=== PATIENT | female | born 1945 | race Caucasian/White ===

== ENCOUNTER 2016-12-25 17:58 | Emergency (ER) | payer OTHER, MEDICARE ==
--- NOTE | 2016-12-25 18:15 | PDOC ---
History of Present Illness - General History Source: Patient, EMS Exam Limitations: No Limitations - History of Present Illness Initial Comments: 12/25/16 19:00 The patient is a 71 year old female with past medical history of diabetes and hyperlipidemia who arrives to the ED via EMS with an episode of hypoglycemia. The patient states that at 4 am this morning she felt weak and could not get herself off the couch. About 12 hours later, after not eating or getting up to use the bathroom, the patient called her sister for help and EMS was called. Upon EMS arrival, the patients blood glucose level was 43 and they noted her to have right sided upper and lower extremity weakness as well as a right sided facial droop. After administering oral glucose, these deficits went away. In the ED, her finger stick was up to 90. The patient denies any complaints at this time. PCP: Catalino Lua [employer] Librarian: Dr. Minor Allergies: Levaquin, Penicillin Social History: Retired geriatric nurse for 40 years, denies history of smoking <Bing Wang - Last Filed: 12/25/16 20:42> <Gail Florence - Last Filed: 12/25/16 22:09> - General Chief Complaint: Blood Sugar Problem Stated Complaint: POSSIBLE CVA Time Seen by Provider: 12/25/16 18:05 NIH Stroke Scale - Last Known Well Date/Time & Onset Date Last Known Well: 12/24/16 Time Last Known Well: 04:00 - Initial Evaluation Level of consciousness: Alert Ask patient the month and their age: Answers one correctly Ask patient to open & close eyes; make fist and let go: Obeys both correctly Best gaze (horizontal eye movement): Normal Visual field testing: No visual field loss Facial paresis (Show teeth/raise eyebrows/close eyes tight): Normal symmetrical movement Motor Function: Left Arm: Normal Motor Function: Right Arm: Normal (extends arm 90 (or 45) degrees for 10 seconds without drift Motor Function: Left Leg: Normal (extends leg 30 degrees for 5 seconds without drift) Motor Function: Right Leg: Normal (extends leg 30 degrees for 5 seconds without drift) Limb Ataxia: No ataxia Sensory(Use pinprick test arms,legs,trunk,face/side to side): Normal Best language (Describe picture, name items, read sentences): No Aphasia Dysarthria (read several words): Normal articulation Extinction and Inattention: No abnormality - Total Score NIH Stroke Scale Score: 1 <Gail Florence - Last Filed: 12/25/16 22:09> Past History <Bing Wang - Last Filed: 12/25/16 20:42> - Past Medical History Anemia: No Asthma: Yes Cancer: Yes (UTERINE CA) Cardiac Disorders: Yes (HEART [id number] NEGATIVE) CVA: No COPD: No CHF: No Dementia: No Diabetes: Yes (IDDM) GI Disorders: Yes (DUODENAL ULCER; GERD;HEARTBURN) Disorders: No HTN: Yes Hypercholesterolemia: Yes Liver Disease: No Seizures: No Thyroid Disease: Yes (THYROID NODULE; HYPOTHYROIDISM) - Surgical History Abdominal Surgery: No Appendectomy: No Cardiac Surgery: No Cholecystectomy: No Lung Surgery: No Neurologic Surgery: No Orthopedic Surgery: No - Psycho/Social/Smoking Cessation Hx Smoking History: Never smoked Hx Alcohol Use: No Drug/Substance Use Hx: No Substance Use Type: None <Gail Florence - Last Filed: 12/25/16 22:09> - Past Medical History Allergies/Adverse Reactions: Allergies Allergy/AdvReac Type Severity Reaction Status Date / Time cephalexin [Cephalexin] Allergy Verified 10/01/13 08:23 levofloxacin Allergy Verified 10/01/13 08:23 Home Medications: Ambulatory Orders Albuterol Sulfate [Proair Hfa -] 2 inhaler PO Q4HWA PRN 10/01/13 Aspirin [ASA -] 1 tab PO DAILY 10/01/13 Atorvastatin Ca [Lipitor] 1 tab PO DAILY 10/01/13 Cholecalciferol (Vitamin D3) [Vitamin D3] 1 tab PO DAILY 10/01/13 Ezetimibe [Zetia -] 1 tab PO DAILY 10/01/13 Insulin Detemir [Levemir VIAL -] 50 units SQ DAILY 10/01/13 Levothyroxine [Synthroid -] 1 tab PO DAILY 10/01/13 Metformin HCl [Glucophage -] 2 tab PO DAILY 10/01/13 Multivit-Min/FA/Lycopene/Lut [Centrum Silver Tablet] 1 tab PO DAILY 10/01/13 Ramipril 1 cap PO DAILY 10/01/13 Review of Systems - Review of Systems Able to Perform ROS?: Yes Comments:: 12/25/16 19:00 CONSTITUTIONAL: Absent: fever, chills, diaphoresis, generalized weakness, malaise, loss of appetite HEENT: Absent: rhinorrhea, nasal congestion, throat pain, throat swelling, difficulty swallowing, mouth swelling, ear pain, eye pain, visual Changes CARDIOVASCULAR: Absent: chest pain, syncope, palpitations, irregular heart rate, lightheadedness , peripheral edema RESPIRATORY: Absent: cough, shortness of breath, dyspnea with exertion, orthopnea, wheezing, stridor, hemoptysis GASTROINTESTINAL: Absent: abdominal pain, abdominal distension, nausea, vomiting, diarrhea, constipation, melena, hematochezia GENITOURINARY: Absent: dysuria, frequency, urgency, hesitancy, hematuria, flank pain, genital pain MUSCULOSKELETAL: Absent: myalgia, arthralgia, joint swelling SKIN: Absent: rash, itching, pallor HEMATOLOGIC/IMMUNOLOGIC: Absent: easy bleeding, easy bruising, lymphadenopathy, frequent infections ENDOCRINE: Absent: unexplained weight gain, unexplained weight loss, heat intolerance, cold intolerance NEUROLOGIC: Present: transient right sided upper and lower extremity weakness, right sided facial droop Absent: headache, dizziness, unsteady gait, seizure, mental status changes, bladder or bowel incontinence PSYCHIATRIC: Absent: anxiety, depression, suicidal or homicidal ideation, hallucinations. All Other Systems: Reviewed and Negative <Bing Wang - Last Filed: 12/25/16 20:42> *Physical Exam - Vital Signs Last Vital Signs Temp Pulse Resp BP Pulse Ox 97.7 F 90 18 150/58 100 12/25/16 17:58 12/25/16 17:58 12/25/16 17:58 12/25/16 17:58 12/25/16 17:58 - Physical Exam Comments: 12/25/16 19:06 GENERAL: Well developed, well nourished. Awake and alert. No acute distress. HEENT: Normocephalic, atraumatic. PERRLA, EOMI. No conjunctival pallor. Sclera are non- icteric. Moist mucous membranes. Oropharynx is clear. NECK: Supple. Full ROM. No JVD. Carotid pulses 2+ and symmetric, without bruits. No thyromegaly. No lymphadenopathy. CARDIOVASCULAR: Regular rate and rhythm. No murmurs, rubs, or gallops. Distal pulses are 2+ and symmetric. PULMONARY: No evidence of respiratory distress. Lungs clear to auscultation bilaterally. No wheezing, rales or rhonchi. ABDOMINAL: Soft. Non-tender. Non-distended. No rebound or guarding. No organomegaly. Normoactive bowel sounds. MUSCULOSKELETAL Normal range of motion at all joints. No bony deformities or tenderness. No CVA tenderness. EXTREMITIES: Trace pitting edema bilaterally. No cyanosis. No clubbing. No edema. No calf tenderness. SKIN: Warm and dry. Normal capillary refill. No rashes. No jaundice. NEUROLOGICAL: Alert, awake, appropriate. Cranial nerves 2-12 intact. No deficits to light touch and temperature in face, upper extremities and lower extremities. No motor deficits in the in face, upper extremities and lower extremities. Normoreflexic in the upper and lower extremities. Normal speech. Toes are down-going bilaterally. Gait is normal without ataxia. PSYCHIATRIC: Cooperative. Good eye contact. Appropriate mood and affect <[facility] - Last Filed: 12/25/16 20:42> ED Treatment Course - LABORATORY CBC & Chemistry Diagram: 12/25/16 19:56 - ADDITIONAL ORDERS Additional order review: Laboratory Results 12/25/16 18:09 POC Glucometer [id number] 12/25/16 18:09 POC Glucometer [id number] - RADIOLOGY Radiograph Interpretation: 12/25/16 20:[address] as reviewed by Dr. Gongora who reports no evidence of acute intracranial pathology. 12/25/16 20:42 Chest X-ray as reviewed by Dr. Gongora reports no acute disease <[facility] - Last Filed: 12/25/16 20:42> - LABORATORY CBC & Chemistry Diagram: 12/25/16 19:56 12/25/16 20:03 <Gail Florence - Last Filed: 12/25/16 22:09> Medical Decision Making - Medical Decision Making 12/25/16 22:04 71-year-old female was brought in by ambulance because she was found to be hypoglycemic. The patient did not eat today. She said that she's been watching her elderly mother and not eating regularly and sleeping odd hours. Today she felt very weak and felt that she had extremity weakness and called her sister who then called 911 NIH stroke scale is essentially normal . 0 After she received glucose all her symptoms resolved She does not have a fever, she is not hypotensive, she is not hypoxic Radiology infiltrates, effusions or pathology Urinalysis was negative CAT scan of the head did not show any acute intracranial pathology CBC had a mild leukocytosis with WBC of 11,000, no anemia, normal platelets and no bandemia Chemistry showed a glucose of 132, kidney function was within normal limits. Electrolytes and LFTs were unremarkable <Gail Florence - Last Filed: 12/25/16 22:09> *DC/Admit/Observation/Transfer - Attestations Scribe Attestion: 12/25/16 19:06 Documentation prepared by Bing Wang, acting as medical billing representative for Gail Florence MD. <Bing Wang - Last Filed: 12/25/16 20:42> <Gail Florence - Last Filed: 12/25/16 22:09> Diagnosis at time of Disposition: Hypoglycemia - Discharge Dispostion Disposition: HOME Condition at time of disposition: Stable - Patient Instructions Printed Discharge Instructions: DI for Hypoglycemia Additional Instructions: PLEASE REMEMBER TO EAT YOUR MEALS WHEN TAKING YOUR INSULIN FPLLOW UP WITH YOUR PRIMARY PHYSICIAN IF YOU DEVELOP ANY FEVER,CHEST PAIN,ABDOMINAL PAIN ,RESPIRATORY DIFFICULTIES- RETURN TO THE EMERGENCY DEPARTMENT
[2016-12-25 18:20] VITALS: BP 150/58; PULSE 90; TEMP 97.7; BMI 33.0
[2016-12-25 19:31] LABS: URINE APPEARANCE CLEAR; URINE BILIRUBIN NEGATIVE (NEGATIVE); URINE BLOOD NEGATIVE (NEGATIVE); URINE COLOR LTYELLOW; URINE GLUCOSE (UA) NEGATIVE (NEGATIVE); URINE KETONE NEGATIVE (NEGATIVE); URINE LEUK ESTERASE NEGATIVE (NEGATIVE); URINE NITRITE NEGATIVE (NEGATIVE); URINE PROTEIN NEGATIVE (NEGATIVE); URINE UROBILINOGEN NEGATIVE mg/dL (0.2-1.0)
[2016-12-25 20:14] LABS: EOSINOPHIL 0.4 % (0-4.5); MCH 28.9 pg (25.7-33.7); MCHC 33.2 g/dl (32.0-36.0); MEAN PLT VOLUME 10.1 fl (7.5-11.1); NEUTROPHILS 77.7 % (42.8-82.8); PLATELET COUNT 405 K/MM3 (134-434); RDW 14.2 % (11.6-15.6); WHITE BLOOD COUNT 11.1 K/mm3 (4.0-10.0)
[2016-12-25 20:26] LABS: INR 0.99 (0.82-1.09); PROTHROMBIN TIME (PATIENT) 10.9 SEC (9.98-11.88)
[2016-12-25 21:08] LABS: ALBUMIN 3.5 g/dl (3.4-5.0); ANION GAP 8 (8-16); BILIRUBIN,TOTAL 0.7 mg/dL (0.2-1.0); CALCIUM 9.3 mg/dL (8.5-10.1); CO2 27 mmol/L (21-32); CREATININE 0.7 mg/dL (0.55-1.02); GLUCOSE,RANDOM 132 mg/dL (74-106); SGOT/AST 12 U/L (15-37); SGPT/ALT 22 U/L (12-78); TOT PROT 7.8 g/dl (6.4-8.2)
[2016-12-25 21:11] LABS: ALK PHOS 116 U/L (45-117); CPK 53 IU/L (26-192); TROPONIN I < 0.02 ng/ml (0.00-0.05)
[2016-12-25 21:35] LABS: PLATELET ESTIMATE ADEQUATE (NORMAL)
--- NOTE | 2016-12-26 13:56 | EKG ---
Test Reason : Blood Pressure : / mmHG Vent. Rate : 090 BPM Atrial Rate : 090 BPM P-R Int : 156 ms QRS Dur : 080 ms QT Int : 362 ms P-R-T Axes : 053 000 039 degrees QTc Int : 442 ms POOR DATA QUALITY, INTERPRETATION MAY BE ADVERSELY AFFECTED NORMAL SINUS RHYTHM LOW VOLTAGE QRS BORDERLINE ECG NO PREVIOUS ECGS AVAILABLE REPEAT EKG IF CLINICALLY INDICATED Confirmed by KARL PRINCE MD ([id number]) on 12/26/2016 1:56:15 PM Referred By: Confirmed By:KARL PRINCE MD
== END 2016-12-25 22:25 | disposition home or self-care (01) ==
LOC: JER 17:58
DX: E11.65 Type 2 diabetes mellitus with hyperglycemia (principal); Z79.84 Long term (current) use of oral hypoglycemic drugs; E03.9 Hypothyroidism, unspecified; E78.5 Hyperlipidemia, unspecified; Z85.42 Personal history of malignant neoplasm of other parts of uterus; R01.1 Cardiac murmur, unspecified; J45.909 Unspecified asthma, uncomplicated; K21.9 Gastro-esophageal reflux disease without esophagitis; Z88.1 Allergy status to other antibiotic agents; Z79.82 Long term (current) use of aspirin
CPT/HCPCS: 36415; 70450-TC; 71010-TC; 80053; 81003; 84484; 85025; 85610; 87086; 93005; 93010; 99284-25

== ENCOUNTER 2019-01-17 14:03 | Emergency (ER) | payer MEDICARE, OTHER ==
--- NOTE | 2019-01-17 14:34 | PDOC ---
History of Present Illness - General Chief Complaint: Blood Sugar Problem Stated Complaint: LOW BLOOD SUGAR Time Seen by Provider: 01/17/19 14:33 History Source: Patient Exam Limitations: No Limitations - History of Present Illness Initial Comments: Aleisha Dietrich is a 73 yo F w a pmh of COPD, MA, IDDM, HTN, HLD, and asthma, GERD , PUD, hypothyroidism, and sciatica who presents to the [facility] because she was hypoglycemic and unconscious. The patient states that she couldn't sleep well last night and was watching TV at 2:30 am when she by accidentally took a 2nd dose of her Levemir medication. This morning the patient's mother noted that the patient was unresponsive on the couch and the mother called 911. EMS came and noted that the patient was unresponsive. Her fingerstick this morning was noted to be 35. They gave her a shot of D50 and put an IV in her running with D51/2NS. Upon arrival to the ED the patient was relatively asymptomatic with a blood glucose of 170 and she states the only thing that bothers her was she had a slight headache. The patient states that 2 years ago she had a similar episode where she became hypoglycemic and experienced stroke like symptoms which resolved immediately after glucose administration. PCP: Dr. Oliver (Formerly Dr. Bae) Catshovel Driver: Dr. Lira PSH: Uterine resection Allergies: Keflex, penicillin, levaquin Social Hx: Independent in ADL. Lives with mother who is 94 and patient takes care of herself without an aid. Past History - Past Medical History Allergies/Adverse Reactions: Allergies Allergy/AdvReac Type Severity Reaction Status Date / Time cephalexin [Cephalexin] Allergy Verified 01/17/19 14:20 levofloxacin Allergy Verified 01/17/19 14:20 Home Medications: Ambulatory Orders Albuterol Sulfate [Proair Hfa -] 2 inhaler PO Q4HWA PRN 10/01/13 Aspirin [ASA -] 1 tab PO DAILY 10/01/13 Atorvastatin Ca [Lipitor] 1 tab PO DAILY 10/01/13 Cholecalciferol (Vitamin D3) [Vitamin D3] 1 tab PO DAILY 10/01/13 Ezetimibe [Zetia -] 1 tab PO DAILY 10/01/13 Insulin Detemir [Levemir VIAL -] 50 units SQ DAILY 10/01/13 Levothyroxine [Synthroid -] 1 tab PO DAILY 10/01/13 Multivit-Min/FA/Lycopene/Lut [Centrum Silver Tablet] 1 tab PO DAILY 10/01/13 Ramipril 1 cap PO DAILY 10/01/13 metFORMIN HCL [Glucophage -] 2 tab PO DAILY 10/01/13 Anemia: No Asthma: Yes Cancer: Yes (UTERINE CA) Cardiac Disorders: Yes (HEART [id number] NEGATIVE) CVA: No COPD: No CHF: No Dementia: No Diabetes: Yes (IDDM) GI Disorders: Yes (DUODENAL ULCER; GERD;HEARTBURN) Disorders: No HTN: Yes Hypercholesterolemia: Yes Liver Disease: No Seizures: No Thyroid Disease: Yes (THYROID NODULE; HYPOTHYROIDISM) - Surgical History Abdominal Surgery: No Appendectomy: No Cardiac Surgery: No Cholecystectomy: No Lung Surgery: No Neurologic Surgery: No Orthopedic Surgery: No - Suicide/Smoking/Psychosocial Hx Smoking History: Never smoked Have you smoked in the past 12 months: No Information on smoking cessation initiated: No Hx Alcohol Use: No Drug/Substance Use Hx: No Substance Use Type: None Review of Systems - Review of Systems Able to Perform ROS?: Yes Comments:: CONSTITUTIONAL: Absent: fever, no chills, no fatigue EYES: Absent: visual changes ENT: Absent: ear pain, no sore throat CARDIOVASCULAR: Absent: chest pain, no palpitations RESPIRATORY: Absent: cough, no SOB GI: Absent: abdominal pain, no nausea, no vomiting, no constipation, no diarrhea GENITOURINARY: Absent: dysuria, no frequency, no hematuria MUSKULOSKELETAL: Absent: back pain, no arthralgia, no myalgia SKIN: Absent: rash NEURO: present: headache *Physical Exam - Vital Signs Last Vital Signs Temp Pulse Resp BP Pulse Ox 97.5 F L 63 18 108/56 L 96 01/17/19 14:10 01/17/19 14:10 01/17/19 14:10 01/17/19 14:10 01/17/19 14:10 - Physical Exam Comments: GENERAL: Well-appearing, well-nourished. No apparent distress. HEENT: Normocephalic, atraumatic. PERRL, EOM intact. CARDIOVASCULAR: Normal S1, S2. Regular rate and rhythm. PULMONARY: No evidence of respiratory distress. Lungs clear to auscultation bilaterally. No wheezing, rales or rhonchi. ABDOMEN: Soft, non-distended, non-tender. EXTREMITIES: Normal ROM in all four extremities. No gross deformities. SKIN: Warm, dry. No rash NEUROLOGICAL: No focal neurological deficits. ED Treatment Course - LABORATORY CBC & Chemistry Diagram: 01/17/19 15:42 01/17/19 15:42 Medical Decision Making - Medical Decision Making Aleisha Dietrich is a 73 yo F w a pmh of COPD, MA, IDDM, HTN, HLD, and asthma, GERD , PUD, hypothyroidism, and sciatica who presents to the [facility] because she was hypoglycemic and unconscious. The patient states that she couldn't sleep well last night and was watching TV at 2:30 am when she by accidentally took a 2nd dose of her Levemir medication. This morning the patient's mother noted that the patient was unresponsive on the couch and the mother called 911. EMS came and noted that the patient was unresponsive. Her fingerstick this morning was noted to be 35. They gave her a shot of D50 and put an IV in her running with D51/2NS. Upon arrival to the ED the patient was relatively asymptomatic with a blood glucose of 170 and she states the only thing that bothers her was she had a slight headache. The patient states that 2 years ago she had a similar episode where she became hypoglycemic and experienced stroke like symptoms which resolved immediately after glucose administration. Vital Signs Temp Pulse Resp BP Pulse Ox 98.1 F 98 H 17 132/69 100 01/17/19 16:32 01/17/19 16:32 01/17/19 16:32 01/17/19 16:32 01/17/19 16:32 MDM: Patient presented to the ER hypoglycemic after she by accidentally took twice as much insulin as she usually takes because she forgot that she took her first dose. The Insulin formulation she took 2 doses of is the long acting Levemir. Plan: Labs, urine, observation, re-assess. Labs unremarkable. Glucose WNL for 5 hours straight in the ED. Urine: unremarkable Re-assessment: Patient feels well and has been asymptomatic since ED arrival Disposition: Will send patient home with PCP follow up and strict return precautions. *DC/Admit/Observation/Transfer Diagnosis at time of Disposition: Hypoglycemia - Discharge Dispostion Disposition: HOME Condition at time of disposition: Improved Decision to Admit order: No - Referrals Referrals: ON STAFF,NOT [Primary Care Provider] - - Patient Instructions Printed Discharge Instructions: Hypoglycemia Additional Instructions: Please make sure to follow up with your primary care doctor in the next 3 to 5 days to make sure you are getting better and being taken care of. Make sure to eat complex carbs for the next 2 days. Come back to the ER if you feel weak, dizzy, start sweating or have any other new or worsening concerns. Thank you for coming to the [facility] ER. We hope you feel better soon! Print Language: KAZAKH - Post Discharge Activity
[2019-01-17 14:38] VITALS: BMI 34.0
[2019-01-17] MEDS ORDERED: DEXTROSE 5%-NORMAL SALINE 500 ML IV ONE (14:59)
[2019-01-17] MEDS ORDERED: ACETAMINOPHEN 1000 MG/100 ML VIAL (NON FORMULARY) IVPB ONE (15:07)
[2019-01-17] MEDS ORDERED: ACETAMINOPHEN INJECTION 100 ML IVPB ONE (15:22)
[2019-01-17] MEDS ORDERED: DEXTROSE 50%-WATER 25 GM/50 ML DISP.SYRIN ONE (15:29)
[2019-01-17] MEDS ORDERED: DEXTROSE 50%-WATER - 25 GM/50 ML VIAL IVPUSH ONE (15:44)
[2019-01-17 15:54] LABS: BASO % 0.9 % (0-2.0); EOS % 0.5 % (0-4.5); HEMATOCRIT 29.2 % (32.4-45.2); HEMOGLOBIN 9.8 GM/dL (10.7-15.3); LYMPH % 14.2 % (8-40); MCH 29.5 pg (25.7-33.7); MCHC 33.6 g/dl (32.0-36.0); MEAN CELL VOLUME 87.9 fl (80-96); MEAN PLT VOLUME 9.9 fl (7.5-11.1); MONO % 3.7 % (3.8-10.2); NEUT % 80.7 % (42.8-82.8); PLATELET COUNT 397 K/MM3 (134-434); RBC 3.32 M/mm3 (3.60-5.2); RDW 15.3 % (11.6-15.6)
[2019-01-17 16:21] LABS: ALBUMIN 3.1 g/dl (3.4-5.0); BILIRUBIN,TOTAL 0.3 mg/dL (0.2-1); BLOOD UREA NITROGEN 11.9 mg/dL (7-18); CALCIUM 9.3 mg/dL (8.5-10.1); CREATININE 0.7 mg/dL (0.55-1.3); POTASSIUM 4.5 mmol/L (3.5-5.1); TOT PROT 7.2 g/dl (6.4-8.2)
[2019-01-17 16:33] VITALS: TEMP 98.1
--- NOTE | 2019-01-17 16:50 | PDOC ---
Documentation entered by Ann Marie Gunter SCRIBE, acting as scribe for Joy Carvajal MD. Joy Carvajal MD: This documentation has been prepared by the yajairaibeJani Natalie, SCRIBE, under my direction and personally reviewed by me in its entirety. I confirm that the documentation accurately reflects all work, treatment, procedures, and medical decision making performed by me. Attending Attestation - Resident Resident Name: Nishant Najera - ED Attending Attestation I have performed the following: I have examined & evaluated the patient, The case was reviewed & discussed with the resident, I agree w/resident's findings & plan, Exceptions are as noted
[2019-01-17 19:30] VITALS: BP 122/78; PULSE 85
--- NOTE | 2019-01-18 11:32 | EKG ---
Test Reason : Blood Pressure : / mmHG Vent. Rate : 086 BPM Atrial Rate : 086 BPM P-R Int : 160 ms QRS Dur : 088 ms QT Int : 392 ms P-R-T Axes : 053 008 065 degrees QTc Int : 469 ms POOR DATA QUALITY, INTERPRETATION MAY BE ADVERSELY AFFECTED NORMAL SINUS RHYTHM NORMAL ECG WHEN COMPARED WITH ECG OF 25-DEC-2016 18:34, NO SIGNIFICANT CHANGE WAS FOUND Confirmed by CARA MÁRQUEZ, ERIBERTO ([id number]) on 01/18/2019 11:32:24 AM Referred By: Confirmed By:ERIBERTO MARROQUIN MD
== END 2019-01-17 19:00 | disposition home or self-care (01) ==
LOC: JER 14:03
PROC: 3E033NZ Introduction of Analgesics, Hypnotics, Sedatives into Peripheral Vein, Percutaneous Approach (ICD-10-PCS; principal; 2019-01-17)
PROC: 3E033GC Introduction of Other Therapeutic Substance into Peripheral Vein, Percutaneous Approach (ICD-10-PCS; 2019-01-17)
DX: E11.65 Type 2 diabetes mellitus with hyperglycemia (principal); J44.9 Chronic obstructive pulmonary disease, unspecified; I10 Essential (primary) hypertension; E78.5 Hyperlipidemia, unspecified; E03.9 Hypothyroidism, unspecified
CPT/HCPCS: 36415; 80053; 82962; 84484; 85025; 93005; 93010; 96361; 96374; 96375; 99283-25; J0131

== ENCOUNTER 2022-12-01 08:04 | Day surgery (SDC) | payer OTHER ==
[2022-12-01] MEDS ORDERED: FUROSEMIDE 40 MG TABLET (FP) PO ONE (11:00)
[2022-12-01] MEDS ORDERED: diphenhydrAMINE HCL 25 MG CAPSULE (FP) PO ONE ×2 (16:07→18:33)
[2022-12-01] MEDS ORDERED: DEXAMETHASONE 4 MG TABLET (FP) PO ONE ×2 (16:15→18:45)
[2022-12-01 16:54] LABS: POTASSIUM 4.3 mmol/L (3.5-5.1)
[2022-12-01 16:56] LABS: CALCIUM 9.3 mg/dL (8.5-10.1)
[2022-12-01 16:59] LABS: BILIRUBIN,DIRECT 0.2 mg/dL (0.0-0.2); CREATININE 0.7 mg/dL (0.55-1.3)
[2022-12-01 17:04] LABS: EPI CELLS 23 /uL (0-25.1); HYALINE CASTS 1 /uL (0-3.1); URINE APPEARANCE CLEAR; URINE BACTERIA 26 /uL (0-1359); URINE BILIRUBIN NEGATIVE (NEGATIVE); URINE COLOR YELLOW; URINE GLUCOSE (UA) NEGATIVE (NEGATIVE); URINE KETONE NEGATIVE (NEGATIVE); URINE LEUK ESTERASE 1+ (NEGATIVE); URINE NITRITE NEGATIVE (NEGATIVE); URINE PROTEIN 3+ (NEGATIVE); URINE RBC 5 /uL (0-23.9); URINE WBC 224 /uL (0-25.8)
[2022-12-01] MEDS ORDERED: INSULIN (NOVOLOG) ASPART 100 UNITS/ML 10ML VIAL SQ ONE (18:45)
[2022-12-01 21:08] VITALS: RESP 18
[2022-12-01 22:06] VITALS: BP 188/68; PULSE 82; TEMP 98.5
[2022-12-01 22:40] LABS: BASO % 2.4 % (0-2.0); EOS % 0.3 % (0-4.5); HEMATOCRIT 32.3 % (32.4-45.2); HEMOGLOBIN 10.5 GM/dL (10.7-15.3); LYMPH % 6.1 % (8-40); MCH 29.2 pg (25.7-33.7); MCHC 32.5 g/dl (32.0-36.0); MEAN PLT VOLUME 10.7 fl (7.5-11.1); MONO % 1.3 % (3.8-10.2); NEUT % 89.9 % (42.8-82.8); PLATELET COUNT 548 10^3/uL (134-434); RBC 3.59 M/mm3 (3.60-5.2); RDW 21.4 % (11.6-15.6); WHITE BLOOD COUNT 8.6 K/mm3 (4.0-10.0)
[2022-12-01 22:58] LABS: ANISOCYTOSIS 2+; MACROCYTOSIS 0; OVALOCYTE 1+
== END 2022-12-01 23:00 | disposition home or self-care (01) ==
LOC: JONCBLOOD 08:04 → J7W 08:09 → JONCBLOOD 19:00
PROVIDERS: ATTEND Internal Medicine Hematology & Oncology
PROC: 30233N1 Transfusion of Nonautologous Red Blood Cells into Peripheral Vein, Percutaneous Approach (ICD-10-PCS; principal; 2022-12-01)
PROC: 3E013VG Introduction of Insulin into Subcutaneous Tissue, Percutaneous Approach (ICD-10-PCS; 2022-12-01)
DX: E61.1 Iron deficiency (principal); I10 Essential (primary) hypertension; C50.811 Malignant neoplasm of overlapping sites of right female breast; Z17.0 Estrogen receptor positive status [ER+]; E78.00 Pure hypercholesterolemia, unspecified; J44.9 Chronic obstructive pulmonary disease, unspecified; Z91.148 Patient's other noncompliance with medication regimen for other reason; Z88.0 Allergy status to penicillin
CPT/HCPCS: 36415; 36430; 80048; 81003; 82247; 82248; 83010; 85025; 86078; 86850; 86900; 86901; 86922; 96372; P9038; P9058

== ENCOUNTER 2023-03-16 08:06 | Day surgery (SDC) | payer OTHER ==
[2023-03-16] MEDS ORDERED: FUROSEMIDE 40 MG TABLET (FP) PO ONE ×2 (10:00→12:00)
[2023-03-16] MEDS ORDERED: FUROSEMIDE 20 MG TABLET (FP) PO ONE (12:00)
[2023-03-16 15:23] VITALS: BP 156/52; PULSE 88; RESP 18; TEMP 98.2
[2023-03-16 18:25] LABS: BASO % 3.3 % (0-2.0); EOS % 2.3 % (0-4.5); HEMOGLOBIN 10.2 GM/dL (10.7-15.3); LYMPH % 27.5 % (8-40); MCH 31.3 pg (25.7-33.7); MEAN CELL VOLUME 92.1 fl (80-96); MEAN PLT VOLUME 11.2 fl (7.5-11.1); NEUT % 61.9 % (42.8-82.8); PLATELET COUNT 429 10^3/uL (134-434); RBC 3.26 M/mm3 (3.60-5.2); RDW 20.7 % (11.6-15.6); WHITE BLOOD COUNT 4.8 K/mm3 (4.0-10.0)
== END 2023-03-16 18:15 | disposition home or self-care (01) ==
LOC: J7W 08:06 → JONCBLOOD 08:06
PROVIDERS: ATTEND Internal Medicine Hematology & Oncology
PROC: 30233N1 Transfusion of Nonautologous Red Blood Cells into Peripheral Vein, Percutaneous Approach (ICD-10-PCS; principal; 2023-03-16)
DX: D64.9 Anemia, unspecified (principal)
CPT/HCPCS: 36415; 36430; 85025; 86850; 86900; 86901; 86922; P9058

== ENCOUNTER 2023-05-24 00:43 | Emergency (ER) | payer OTHER ==
[2023-05-24 00:58] VITALS: BP 166/58; PULSE 101; RESP 20; TEMP 98.8; BMI 25.4
== END 2023-05-24 01:12 | disposition left against medical advice (07) ==
LOC: JER 00:43
DX: R22.43 Localized swelling, mass and lump, lower limb, bilateral (principal)
CPT/HCPCS: 99283-25

== ENCOUNTER 2023-09-08 14:10 | Inpatient (IN) | payer OTHER ==
[2023-09-08 14:34] VITALS: BMI 28.3
[2023-09-08] MEDS ORDERED: MIDAZOLAM HCL 2 MG/2 ML SINGLE DOSE VIAL ONE (15:13)
[2023-09-08 15:23] LABS: VENOUS O2 SATURATION 26.3 % (70-80); VENOUS PCO2 40.8 mmHg (38-52); VENOUS PH 7.402 (7.310-7.410)
[2023-09-08 15:24] LABS: INR 1.12 (0.83-1.09)
[2023-09-08 15:25] LABS: HEMATOCRIT 14.8 % (32.4-45.2); MCH 32.8 pg (25.7-33.7); MCHC 31.4 g/dl (32.0-36.0); MEAN CELL VOLUME 104.6 fl (80-96); MEAN PLT VOLUME 9.5 fl (7.5-11.1); PLATELET COUNT 714 10^3/uL (134-434); RBC 1.42 M/mm3 (3.60-5.2); RDW 25.3 % (11.6-15.6); WHITE BLOOD COUNT 10.5 K/mm3 (4.0-10.0)
[2023-09-08] MEDS: MIDAZOLAM HCL 2 MG/2 ML SINGLE DOSE VIAL IVPUSH ONE (15:29)
[2023-09-08 15:31] LABS: HEMOGLOBIN 4.7 GM/dL (10.7-15.3)
[2023-09-08 15:38] LABS: POTASSIUM 4.6 mmol/L (3.5-5.1)
[2023-09-08 15:40] LABS: CALCIUM 8.7 mg/dL (8.5-10.1)
[2023-09-08 15:41] LABS: ALBUMIN 2.8 g/dl (3.4-5.0); BLOOD UREA NITROGEN 24.1 mg/dL (7-18)
[2023-09-08 15:43] LABS: ANISOCYTOSIS 2+; MACROCYTOSIS 0
[2023-09-08 15:44] LABS: CREATININE 0.7 mg/dL (0.55-1.3)
[2023-09-08 15:45] LABS: TOT PROT 6.9 g/dl (6.4-8.2)
[2023-09-08 15:46] LABS: BILIRUBIN,TOTAL 0.8 mg/dL (0.2-1)
[2023-09-08 16:16] LABS: INR 1.11 (0.83-1.09); PROTHROMBIN TIME (PATIENT) 12.9 SEC (9.7-13.0)
[2023-09-08 16:19] LABS: ACTIVATED PTT 28.6 SECONDS (25.2-36.5)
[2023-09-08] MEDS ORDERED: ACETAMINOPHEN INJECTION 100 ML IVPB ONE (20:41)
[2023-09-08] MEDS: ACETAMINOPHEN 1000 MG/100 ML BAG IVPB ONE (20:45)
[2023-09-09 02:22] LABS: BASO % 3.2 % (0-2.0); EOS % 1.1 % (0-4.5); HEMOGLOBIN 9.2 GM/dL (10.7-15.3); LYMPH % 13.3 % (8-40); MCH 32.5 pg (25.7-33.7); MEAN CELL VOLUME 95.4 fl (80-96); MONO % 6.1 % (3.8-10.2); NEUT % 76.3 % (42.8-82.8); PLATELET COUNT 560 10^3/uL (134-434); RBC 2.83 M/mm3 (3.60-5.2); RDW 17.2 % (11.6-15.6); WHITE BLOOD COUNT 7.6 K/mm3 (4.0-10.0)
[2023-09-09] MEDS: DEXTROSE 5%-LACTATED RINGERS 1,000 ML IV SCH (04:13)
[2023-09-09] MEDS: FUROSEMIDE 40 MG/4 ML INJECTABLE VIAL IVPUSH ONE (06:14)
[2023-09-09] MEDS: INSULIN ASPART SLIDING SCALE (NOVOLOG) 1 VIAL SQ SCH (06:21)
[2023-09-09] MEDS: LEVOTHYROXINE 100 MCG, LEVOTHYROXINE 75 MCG PO SCH (06:24)
[2023-09-09 08:16] LABS: RETICULOCYTES 1.86 % (0.5-1.5)
[2023-09-09] MEDS ORDERED: PATIENT'S OWN MEDICATION (NON-FORMULARY) (Levothyroxine Sodium [Levothyroxine Sodium] 175 PO SCH (10:00)
[2023-09-09] MEDS: LOSARTAN POTASSIUM 50 MG TABLET PO SCH (12:27)
[2023-09-09] MEDS: PANTOPRAZOLE SODIUM 40 MG VIAL IVPUSH SCH (12:29)
[2023-09-09] MEDS: PREGABALIN 25 MG CAPSULE PO SCH (12:29)
[2023-09-09] MEDS: DEXTROSE 5%-0.45% SALINE 1,000 ML IV SCH (17:11)
[2023-09-09] MEDS ORDERED: ARIPiprazole 2 MG TABLET PO SCH (22:00)
[2023-09-09] MEDS ORDERED: MIRTAZAPINE 15 MG TABLET (FP) PO SCH (22:00)
[2023-09-09] MEDS: ARIPiprazole 2 MG TABLET PO SCH (22:18)
[2023-09-09] MEDS: QUEtiapine FUMARATE 25 MG TABLET PO SCH (22:18)
[2023-09-10] MEDS: LEVOTHYROXINE NA 150 MCG TABLET PO SCH (06:13)
[2023-09-10 06:35] LABS: BASO % 2.9 % (0-2.0); HEMATOCRIT 26.1 % (32.4-45.2); LYMPH % 10.2 % (8-40); MCH 32.9 pg (25.7-33.7); MCHC 34.4 g/dl (32.0-36.0); MEAN CELL VOLUME 95.5 fl (80-96); MEAN PLT VOLUME 9.1 fl (7.5-11.1); MONO % 7.4 % (3.8-10.2); NEUT % 78.5 % (42.8-82.8); PLATELET COUNT 554 10^3/uL (134-434); RBC 2.74 M/mm3 (3.60-5.2); RDW 19.3 % (11.6-15.6); WHITE BLOOD COUNT 8.8 K/mm3 (4.0-10.0)
[2023-09-10 06:50] LABS: POTASSIUM 3.6 mmol/L (3.5-5.1)
[2023-09-10 06:51] LABS: BLOOD UREA NITROGEN 12.8 mg/dL (7-18); CALCIUM 8.7 mg/dL (8.5-10.1)
[2023-09-10 06:54] LABS: CREATININE 0.6 mg/dL (0.55-1.3)
[2023-09-10] MEDS: POLYETHYLENE GLYCOL (HEALTHYLAX) 3350 17 GM PACKET PO SCH (21:16)
[2023-09-10] MEDS: SENNOSIDES 8.8 MG/5 ML SYRUP PO SCH (21:16)
[2023-09-11 07:35] LABS: HEMOGLOBIN 8.8 GM/dL (10.7-15.3); MCH 32.9 pg (25.7-33.7); MCHC 33.8 g/dl (32.0-36.0); MEAN CELL VOLUME 97.3 fl (80-96); MEAN PLT VOLUME 9.3 fl (7.5-11.1); PLATELET COUNT 518 10^3/uL (134-434); RBC 2.67 M/mm3 (3.60-5.2); RDW 18.8 % (11.6-15.6); WHITE BLOOD COUNT 8.2 K/mm3 (4.0-10.0)
[2023-09-11 07:48] LABS: POTASSIUM 3.6 mmol/L (3.5-5.1)
[2023-09-11 07:50] LABS: CALCIUM 8.4 mg/dL (8.5-10.1)
[2023-09-11 07:51] LABS: BLOOD UREA NITROGEN 10.7 mg/dL (7-18)
[2023-09-11 07:54] LABS: CREATININE 0.6 mg/dL (0.55-1.3)
[2023-09-11 07:55] LABS: TOT PROT 6.2 g/dl (6.4-8.2)
[2023-09-11 07:56] LABS: BILIRUBIN,TOTAL 1.5 mg/dL (0.2-1)
[2023-09-11 08:04] LABS: ALBUMIN 2.2 g/dl (3.4-5.0)
[2023-09-11 09:07] LABS: ANISOCYTOSIS 1+; MACROCYTOSIS 1+
[2023-09-11] MEDS: ANASTROZOLE 1 MG TABLET PO SCH (10:30)
[2023-09-11] MEDS: PIPERACILLIN/TAZOB 3.375 GM 3.375 GM in DEXTROSE 5%-WATER - 50 ML IVPB SCH (17:03)
[2023-09-11] MEDS: DOXYCYCLINE INJECTION 100 MG in DEXTROSE 5%-WATER 100 ML IVPB SCH (22:20)
[2023-09-12 07:42] LABS: HEMATOCRIT 23.6 % (32.4-45.2); HEMOGLOBIN 7.9 GM/dL (10.7-15.3); MCH 32.7 pg (25.7-33.7); MCHC 33.5 g/dl (32.0-36.0); MEAN CELL VOLUME 97.6 fl (80-96); MEAN PLT VOLUME 9.3 fl (7.5-11.1); PLATELET COUNT 470 10^3/uL (134-434); RBC 2.42 M/mm3 (3.60-5.2); RDW 18.6 % (11.6-15.6); WHITE BLOOD COUNT 8.3 K/mm3 (4.0-10.0)
[2023-09-12 08:32] LABS: POTASSIUM 4.1 mmol/L (3.5-5.1)
[2023-09-12 08:39] LABS: BLOOD UREA NITROGEN 10.3 mg/dL (7-18); CALCIUM 8.5 mg/dL (8.5-10.1)
[2023-09-12 08:40] LABS: ALBUMIN 2.1 g/dl (3.4-5.0)
[2023-09-12 08:41] LABS: CREATININE 0.6 mg/dL (0.55-1.3)
[2023-09-12 17:29] LABS: EPI CELLS 9 /uL (0-25.1); HYALINE CASTS 0 /uL (0-3.1); URINE APPEARANCE CLEAR; URINE BACTERIA 7 /uL (0-1359); URINE BILIRUBIN NEGATIVE (NEGATIVE); URINE COLOR YELLOW; URINE GLUCOSE (UA) 3+ (NEGATIVE); URINE KETONE NEGATIVE (NEGATIVE); URINE LEUK ESTERASE NEGATIVE (NEGATIVE); URINE NITRITE NEGATIVE (NEGATIVE); URINE PROTEIN 2+ (NEGATIVE); URINE RBC 20 /uL (0-23.9); URINE WBC 11 /uL (0-25.8)
[2023-09-12] MEDS: AZTREONAM 1 GM in DEXTROSE 5%-WATER - 50 ML IVPB SCH (18:05)
[2023-09-12] MEDS: ACETAMINOPHEN 325 MG TABLET (FP) PO PRN (23:25)
[2023-09-13] MEDS: LIDOCAINE HCL 1%, 10 MG/ML (20ML VIAL) INF ONE
[2023-09-13 08:20] LABS: HEMATOCRIT 28.3 % (32.4-45.2); HEMOGLOBIN 9.5 GM/dL (10.7-15.3); MCH 32.5 pg (25.7-33.7); MCHC 33.4 g/dl (32.0-36.0); MEAN CELL VOLUME 97.2 fl (80-96); MEAN PLT VOLUME 9.3 fl (7.5-11.1); PLATELET COUNT 478 10^3/uL (134-434); RBC 2.91 M/mm3 (3.60-5.2); RDW 18.1 % (11.6-15.6); WHITE BLOOD COUNT 7.1 K/mm3 (4.0-10.0)
[2023-09-13 08:31] LABS: INR 1.22 (0.83-1.09); PROTHROMBIN TIME (PATIENT) 14.1 SEC (9.7-13.0)
[2023-09-13 08:43] LABS: POTASSIUM 4.1 mmol/L (3.5-5.1)
[2023-09-13 09:08] LABS: ALBUMIN 1.9 g/dl (3.4-5.0); BLOOD UREA NITROGEN 11.4 mg/dL (7-18); CALCIUM 8.7 mg/dL (8.5-10.1)
[2023-09-13 09:11] LABS: CREATININE 0.5 mg/dL (0.55-1.3)
[2023-09-13 09:13] LABS: BILIRUBIN,TOTAL 2.3 mg/dL (0.2-1); TOT PROT 5.9 g/dl (6.4-8.2)
[2023-09-13] MEDS ORDERED: LIDOCAINE HCL 1%, 10 MG/ML (20ML VIAL) ONE (11:44)
[2023-09-13] MEDS ORDERED: HEPARIN NA (PORCINE) 5,000 UNITS/ML 1ML VIAL ONE (11:44)
[2023-09-13] MEDS ORDERED: FENTANYL CITRATE/PF 50 MCG/ML VIAL ONE ×4 (11:56→13:55)
[2023-09-13] MEDS ORDERED: LIDOCAINE HCL/PF 2% SDV 5ML VIAL ONE (11:57)
[2023-09-13] MEDS ORDERED: ONDANSETRON 4 MG/2 ML VIAL ONE (12:26)
[2023-09-13] MEDS ORDERED: ONDANSETRON 4 MG/2 ML VIAL IVPUSH PRN ×2 (13:25→13:49)
[2023-09-13] MEDS ORDERED: CLOPIDOGREL BISULFATE 75 MG TABLET (FP) ONE (13:55)
[2023-09-13] MEDS: CLOPIDOGREL BISULFATE 75 MG TABLET (FP) PO SCH (14:10)
[2023-09-13] MEDS: AZTREONAM 1 GM in DEXTROSE 5%-WATER - 50 ML IVPB SCH (17:06)
[2023-09-13] MEDS: DEXTROSE 5%-0.45% SALINE 1,000 ML IV SCH (17:06)
[2023-09-13] MEDS: INSULIN ASPART SLIDING SCALE (NOVOLOG) 1 VIAL SQ SCH (17:23)
[2023-09-13] MEDS: SENNOSIDES 8.8 MG/5 ML SYRUP PO SCH (21:10)
[2023-09-13] MEDS: PANTOPRAZOLE SODIUM 40 MG VIAL IVPUSH SCH (21:10)
[2023-09-13] MEDS: QUEtiapine FUMARATE 25 MG TABLET PO SCH (21:10)
[2023-09-13] MEDS: POLYETHYLENE GLYCOL (HEALTHYLAX) 3350 17 GM PACKET PO SCH (21:11)
[2023-09-13] MEDS: DOXYCYCLINE INJECTION 100 MG in DEXTROSE 5%-WATER 100 ML IVPB SCH (21:11)
[2023-09-14] MEDS: LEVOTHYROXINE NA 150 MCG TABLET PO SCH (06:37)
[2023-09-14 07:35] LABS: HEMATOCRIT 26.9 % (32.4-45.2); HEMOGLOBIN 8.9 GM/dL (10.7-15.3); MCH 32.2 pg (25.7-33.7); MCHC 33.3 g/dl (32.0-36.0); MEAN CELL VOLUME 96.7 fl (80-96); MEAN PLT VOLUME 9.7 fl (7.5-11.1); PLATELET COUNT 449 10^3/uL (134-434); RBC 2.78 M/mm3 (3.60-5.2); RDW 17.9 % (11.6-15.6); WHITE BLOOD COUNT 6.5 K/mm3 (4.0-10.0)
[2023-09-14 07:45] LABS: CALCIUM 8.2 mg/dL (8.5-10.1)
[2023-09-14 07:46] LABS: ALBUMIN 1.9 g/dl (3.4-5.0); BLOOD UREA NITROGEN 7.7 mg/dL (7-18)
[2023-09-14 07:49] LABS: CREATININE 0.5 mg/dL (0.55-1.3)
[2023-09-14 07:51] LABS: BILIRUBIN,TOTAL 1.4 mg/dL (0.2-1); TOT PROT 5.6 g/dl (6.4-8.2)
[2023-09-14] MEDS: DOXYCYCLINE HYCLATE 100 MG CAPSULE PO SCH (09:03)
[2023-09-14] MEDS: ANASTROZOLE 1 MG TABLET PO SCH (09:04)
[2023-09-14] MEDS: ACETAMINOPHEN 325 MG TABLET (FP) PO PRN (17:32)
[2023-09-15 06:35] LABS: HEMATOCRIT 26.7 % (32.4-45.2); MCH 32.4 pg (25.7-33.7); MCHC 33.6 g/dl (32.0-36.0); MEAN CELL VOLUME 96.6 fl (80-96); MEAN PLT VOLUME 9.8 fl (7.5-11.1); PLATELET COUNT 452 10^3/uL (134-434); RBC 2.76 M/mm3 (3.60-5.2); RDW 17.5 % (11.6-15.6); WHITE BLOOD COUNT 6.4 K/mm3 (4.0-10.0)
[2023-09-15 07:21] LABS: POTASSIUM 3.9 mmol/L (3.5-5.1)
[2023-09-15 07:27] LABS: CALCIUM 8.5 mg/dL (8.5-10.1)
[2023-09-15 07:28] LABS: ALBUMIN 1.8 g/dl (3.4-5.0); BLOOD UREA NITROGEN 10.1 mg/dL (7-18)
[2023-09-15 07:31] LABS: CREATININE 0.4 mg/dL (0.55-1.3)
[2023-09-15 07:33] LABS: BILIRUBIN,TOTAL 1.1 mg/dL (0.2-1); TOT PROT 5.7 g/dl (6.4-8.2)
[2023-09-15 09:13] LABS: ERYTHROCYTE SEDIMENTATION RATE 117 mm/hr (0-30)
[2023-09-15] MEDS: VANCOMYCIN/WATER FOR INJ (PEG) 1,000 MG/200 ML BAG IVPB SCH (15:42)
[2023-09-15] MEDS: PIPERACILLIN/TAZOB 3.375 GM 3.375 GM in DEXTROSE 5%-WATER - 50 ML IVPB SCH (20:17)
[2023-09-15] MEDS: LACTATED RINGERS SOLUTION 1,000 ML IV SCH ×2 (20:17)
[2023-09-16 06:03] LABS: BASO % 4.6 % (0-2.0); EOS % 7.7 % (0-4.5); HEMATOCRIT 24.8 % (32.4-45.2); HEMOGLOBIN 8.4 GM/dL (10.7-15.3); LYMPH % 22.4 % (8-40); MCHC 33.8 g/dl (32.0-36.0); MEAN CELL VOLUME 97.6 fl (80-96); MEAN PLT VOLUME 9.9 fl (7.5-11.1); MONO % 6.1 % (3.8-10.2); NEUT % 59.2 % (42.8-82.8); PLATELET COUNT 402 10^3/uL (134-434); RBC 2.54 M/mm3 (3.60-5.2); RDW 17.2 % (11.6-15.6); WHITE BLOOD COUNT 5.4 K/mm3 (4.0-10.0)
[2023-09-16 07:19] LABS: POTASSIUM 3.5 mmol/L (3.5-5.1)
[2023-09-16 07:29] LABS: CALCIUM 8.2 mg/dL (8.5-10.1)
[2023-09-16 07:30] LABS: BLOOD UREA NITROGEN 9.8 mg/dL (7-18)
[2023-09-16 07:33] LABS: CREATININE 0.5 mg/dL (0.55-1.3)
[2023-09-17 06:53] LABS: MCH 32.4 pg (25.7-33.7); MCHC 33.5 g/dl (32.0-36.0); MEAN CELL VOLUME 96.8 fl (80-96); MEAN PLT VOLUME 9.6 fl (7.5-11.1); PLATELET COUNT 382 10^3/uL (134-434); RBC 2.48 M/mm3 (3.60-5.2); RDW 16.5 % (11.6-15.6); WHITE BLOOD COUNT 5.6 K/mm3 (4.0-10.0)
[2023-09-17 07:13] LABS: POTASSIUM 3.9 mmol/L (3.5-5.1)
[2023-09-17 07:21] LABS: BLOOD UREA NITROGEN 8.6 mg/dL (7-18); CALCIUM 8.6 mg/dL (8.5-10.1); MAGNESIUM 1.9 mg/dL (1.8-2.4)
[2023-09-17 07:24] LABS: CREATININE 0.4 mg/dL (0.55-1.3); PHOSPHOROUS 2.7 mg/dL (2.5-4.9)
[2023-09-17 07:25] LABS: BILIRUBIN,TOTAL 0.8 mg/dL (0.2-1); TOT PROT 5.9 g/dl (6.4-8.2)
[2023-09-17 10:06] LABS: METHYLMALONIC ACID- 245 nmol/L (0-378)
[2023-09-17 10:25] LABS: ANISOCYTOSIS 1+; MACROCYTOSIS 1+
[2023-09-17] MEDS: ASCORBIC ACID 500 MG TABLET (FP) PO SCH (21:24)
[2023-09-18 07:37] LABS: POTASSIUM 3.6 mmol/L (3.5-5.1)
[2023-09-18 07:40] LABS: HEMATOCRIT 26.1 % (32.4-45.2); HEMOGLOBIN 8.7 GM/dL (10.7-15.3); MCH 32.4 pg (25.7-33.7); MCHC 33.1 g/dl (32.0-36.0); MEAN PLT VOLUME 10.3 fl (7.5-11.1); PLATELET COUNT 422 10^3/uL (134-434); RBC 2.67 M/mm3 (3.60-5.2); WHITE BLOOD COUNT 5.4 K/mm3 (4.0-10.0)
[2023-09-18 07:53] LABS: CALCIUM 8.7 mg/dL (8.5-10.1)
[2023-09-18 07:54] LABS: BLOOD UREA NITROGEN 7.1 mg/dL (7-18)
[2023-09-18 07:57] LABS: CREATININE 0.4 mg/dL (0.55-1.3)
[2023-09-18] MEDS: MULTIVITAMINS (DAILY MVI) TABLET (FP) PO SCH (09:34)
[2023-09-18] MEDS ORDERED: LIDOCAINE HCL 2% (20ML MULTI-DOSE VIAL) ONE (10:26)
[2023-09-18] MEDS ORDERED: BUPIVACAINE HCL/PF 0.5% (5MG/ML) 10 ML VIAL ONE (10:26)
[2023-09-18] MEDS ORDERED: LIDOCAINE HCL/PF 2% SDV 5ML VIAL ONE (10:30)
[2023-09-18] MEDS ORDERED: PROPOFOL 20 ML ONE (10:30)
[2023-09-18] MEDS ORDERED: MIDAZOLAM HCL 2 MG/2 ML SINGLE DOSE VIAL ONE (10:31)
[2023-09-18] MEDS ORDERED: FENTANYL CITRATE/PF 50 MCG/ML VIAL ONE ×3 (10:31→14:14)
[2023-09-18] MEDS: LIDOCAINE HCL 2% (50ML VIAL) INF ONE (12:36)
[2023-09-18] MEDS: VANCOMYCIN/WATER FOR INJ (PEG) 1,000 MG/200 ML BAG IVPB SCH (13:30)
[2023-09-18] MEDS ORDERED: ONDANSETRON 4 MG/2 ML VIAL IVPUSH PRN (13:51)
[2023-09-18] MEDS ORDERED: PROMETHAZINE HCL 25 MG/1 ML VIAL IVPB PRN (13:51)
[2023-09-18] MEDS ORDERED: ACETAMINOPHEN INJECTION 100 ML IVPB ONE (13:55)
[2023-09-18] MEDS: ACETAMINOPHEN 1000 MG/100 ML BAG IVPB ONE (13:55)
[2023-09-18] MEDS: DEXTROSE 5%-0.45% SALINE 1,000 ML IV SCH (14:36)
[2023-09-18] MEDS: LACTATED RINGERS SOLUTION 1,000 ML IV SCH (15:21)
[2023-09-18] MEDS: INSULIN ASPART SLIDING SCALE (NOVOLOG) 1 VIAL SQ SCH (17:29)
[2023-09-18] MEDS: AZTREONAM 1 GM in DEXTROSE 5%-WATER - 50 ML IVPB SCH (19:08)
[2023-09-18] MEDS: PANTOPRAZOLE 40 MG TABLET PO SCH (21:46)
[2023-09-18] MEDS: POLYETHYLENE GLYCOL (HEALTHYLAX) 3350 17 GM PACKET PO SCH (21:46)
[2023-09-18] MEDS: SENNOSIDES 8.8 MG/5 ML SYRUP PO SCH (21:47)
[2023-09-18] MEDS: QUEtiapine FUMARATE 25 MG TABLET PO SCH (21:47)
[2023-09-18] MEDS: ASCORBIC ACID 500 MG TABLET (FP) PO SCH (21:47)
[2023-09-18] MEDS ORDERED: PANTOPRAZOLE SODIUM 40 MG VIAL IVPUSH SCH (22:00)
[2023-09-19] MEDS: ACETAMINOPHEN 325 MG TABLET (FP) PO PRN (00:26)
[2023-09-19] MEDS: LEVOTHYROXINE NA 75 MCG TABLET (FP) PO SCH (06:12)
[2023-09-19] MEDS ORDERED: LEVOTHYROXINE NA 150 MCG TABLET PO SCH (07:00)
[2023-09-19 08:39] LABS: HEMOGLOBIN 7.8 GM/dL (10.7-15.3); MCH 31.9 pg (25.7-33.7); MCHC 32.5 g/dl (32.0-36.0); MEAN PLT VOLUME 10.6 fl (7.5-11.1); PLATELET COUNT 384 10^3/uL (134-434); RBC 2.45 M/mm3 (3.60-5.2); RDW 17.3 % (11.6-15.6); WHITE BLOOD COUNT 11.9 K/mm3 (4.0-10.0)
[2023-09-19 09:12] LABS: BLOOD UREA NITROGEN 10.4 mg/dL (7-18)
[2023-09-19 09:14] LABS: BILIRUBIN,TOTAL 0.7 mg/dL (0.2-1); CALCIUM 8.2 mg/dL (8.5-10.1)
[2023-09-19 09:15] LABS: CREATININE 0.6 mg/dL (0.55-1.3)
[2023-09-19 09:17] LABS: TOT PROT 5.9 g/dl (6.4-8.2)
[2023-09-19] MEDS: MULTIVITAMINS (DAILY MVI) TABLET (FP) PO SCH (09:24)
[2023-09-19] MEDS: CLOPIDOGREL BISULFATE 75 MG TABLET (FP) PO SCH (09:25)
[2023-09-19] MEDS: ANASTROZOLE 1 MG TABLET PO SCH (09:27)
[2023-09-19] MEDS ORDERED: CLOPIDOGREL BISULFATE 75 MG TABLET (FP) PO SCH (10:00)
[2023-09-19] MEDS ORDERED: LORazepam 2 MG TABLET PO PRN (13:21)
[2023-09-19] MEDS: LORazepam 1 MG TABLET PO PRN (14:06)
[2023-09-19] MEDS: QUEtiapine FUMARATE 25 MG TABLET PO SCH (21:12)
[2023-09-19] MEDS: DONEPEZIL HCL 5 MG TABLET (FP) PO SCH (21:12)
[2023-09-20 07:53] LABS: HEMATOCRIT 23.2 % (32.4-45.2); HEMOGLOBIN 7.7 GM/dL (10.7-15.3); MCH 32.6 pg (25.7-33.7); MCHC 33.4 g/dl (32.0-36.0); MEAN CELL VOLUME 97.5 fl (80-96); MEAN PLT VOLUME 10.9 fl (7.5-11.1); PLATELET COUNT 368 10^3/uL (134-434); RBC 2.38 M/mm3 (3.60-5.2); RDW 17.8 % (11.6-15.6); WHITE BLOOD COUNT 7.2 K/mm3 (4.0-10.0)
[2023-09-20 08:04] LABS: POTASSIUM 3.9 mmol/L (3.5-5.1)
[2023-09-20 08:13] LABS: CALCIUM 8.7 mg/dL (8.5-10.1)
[2023-09-20 08:14] LABS: ALBUMIN 1.8 g/dl (3.4-5.0); BLOOD UREA NITROGEN 9.6 mg/dL (7-18); CREATININE 0.4 mg/dL (0.55-1.3)
[2023-09-20 08:16] LABS: BILIRUBIN,TOTAL 0.5 mg/dL (0.2-1); TOT PROT 6.1 g/dl (6.4-8.2)
[2023-09-20] MEDS: QUEtiapine FUMARATE 25 MG TABLET PO SCH (10:17)
[2023-09-20] MEDS: ACETAMINOPHEN 1000 MG/100 ML BAG IVPB ONE (11:18)
[2023-09-21] MEDS ORDERED: ACETAMINOPHEN 325 MG TABLET (FP) PO PRN (02:50)
[2023-09-21 08:10] LABS: HEMATOCRIT 21.5 % (32.4-45.2); HEMOGLOBIN 7.2 GM/dL (10.7-15.3); MCH 32.5 pg (25.7-33.7); MCHC 33.3 g/dl (32.0-36.0); MEAN CELL VOLUME 97.7 fl (80-96); MEAN PLT VOLUME 10.8 fl (7.5-11.1); PLATELET COUNT 398 10^3/uL (134-434); RDW 17.9 % (11.6-15.6); WHITE BLOOD COUNT 5.8 K/mm3 (4.0-10.0)
[2023-09-21 08:25] LABS: POTASSIUM 3.7 mmol/L (3.5-5.1)
[2023-09-21 08:38] LABS: ALBUMIN 1.7 g/dl (3.4-5.0); CALCIUM 8.3 mg/dL (8.5-10.1)
[2023-09-21 08:39] LABS: BLOOD UREA NITROGEN 6.5 mg/dL (7-18)
[2023-09-21 08:41] LABS: CREATININE 0.4 mg/dL (0.55-1.3)
[2023-09-21 08:42] LABS: BILIRUBIN,TOTAL 0.6 mg/dL (0.2-1)
[2023-09-21 08:43] LABS: TOT PROT 5.8 g/dl (6.4-8.2)
[2023-09-21] MEDS: ENOXAPARIN NA (PORCINE) 40 MG/0.4 ML DISP.SYRIN SQ SCH (09:04)
[2023-09-21] MEDS: ACETAMINOPHEN 1000 MG/100 ML BAG IVPB PRN (09:43)
[2023-09-22] MEDS: amLODIPine BESYLATE 5 MG TABLET (FP) PO SCH (13:38)
[2023-09-22] MEDS ORDERED: QUEtiapine FUMARATE 25 MG TABLET ONE (21:00)
[2023-09-22] MEDS: QUEtiapine FUMARATE 50 MG TABLET PO SCH (21:09)
[2023-09-23] MEDS ORDERED: QUEtiapine FUMARATE 25 MG TABLET ONE (21:01)
[2023-09-23] MEDS: MELATONIN 5 MG TABLETS PO SCH (21:03)
[2023-09-23 21:45] VITALS: RESP 18
[2023-09-24 15:35] VITALS: BP 148/65; PULSE 90; TEMP 98.3
== END 2023-09-24 14:14 | DRG 981 ==
LOC: JER 14:10 → JERBED 09-09 01:33 → J4S 09-09 05:03
PROVIDERS: ADMIT Internal Medicine; ATTEND Internal Medicine
PROC: 30233N1 Transfusion of Nonautologous Red Blood Cells into Peripheral Vein, Percutaneous Approach (ICD-10-PCS; 2023-09-08)
PROC: 0JBN3ZZ Excision of Right Lower Leg Subcutaneous Tissue and Fascia, Percutaneous Approach (ICD-10-PCS; 2023-09-13)
PROC: B40DYZZ Plain Radiography of Aorta and Bilateral Lower Extremity Arteries using Other Contrast (ICD-10-PCS; 2023-09-13)
PROC: 047P3ZZ Dilation of Right Anterior Tibial Artery, Percutaneous Approach (ICD-10-PCS; 2023-09-13 10:30)
PROC: 0J9Q0ZZ Drainage of Right Foot Subcutaneous Tissue and Fascia, Open Approach (ICD-10-PCS; 2023-09-14)
PROC: 0Y6M0Z9 Detachment at Right Foot, Partial 1st Ray, Open Approach (ICD-10-PCS; principal; 2023-09-18 11:30)
DX: D46.9 Myelodysplastic syndrome, unspecified (principal); G93.41 Metabolic encephalopathy; L97.518 Non-pressure chronic ulcer of other part of right foot with other specified severity; L03.119 Cellulitis of unspecified part of limb; M86.9 Osteomyelitis, unspecified; F03.918 Unspecified dementia, unspecified severity, with other behavioral disturbance; M86.171 Other acute osteomyelitis, right ankle and foot; L97.919 Non-pressure chronic ulcer of unspecified part of right lower leg with unspecified severity; E11.69 Type 2 diabetes mellitus with other specified complication; D46.C Myelodysplastic syndrome with isolated del(5q) chromosomal abnormality; D64.9 Anemia, unspecified; E03.9 Hypothyroidism, unspecified; I10 Essential (primary) hypertension; D69.6 Thrombocytopenia, unspecified; E11.621 Type 2 diabetes mellitus with foot ulcer
CPT/HCPCS: 36415; 36430; 70450-TC; 71045-TC-FY; 73630-TC-RT-FY; 76000-TC-FY; 80048; 80053; 80061; 81003; 82272; 82550; 82607; 82668; 82728; 82746; 82803; 82962; 83010; 83036; 83540; 83550; 83605; 83615; 83735; 83921; 84100; 84439; 84443; 84484; 85025; 85027; 85045; 85610; 85651; 85730; 86140; 86850; 86900; 86901; 86922; 87040; 87070; 87075; 87086; 87186; 87205; 88304-TC; 88305-TC; 88311-TC; 93005; 93010; 93306-TC; 93926-TC; 93971; 94760; 97116-GP; 97161-GP; 99285-25; C1725; C1760; C1897; G0480; J0131; J1644; P9038; P9058

== ENCOUNTER 2023-10-20 08:53 | Inpatient (IN) | payer OTHER ==
[2023-10-20] MEDS ORDERED: ACETAMINOPHEN INJECTION 100 ML IVPB ONE (09:47)
[2023-10-20 10:39] LABS: VENOUS BASE EXCESS 1.7 mmol/L (-2-2); VENOUS O2 SATURATION 36.4 % (70-80); VENOUS PCO2 43.1 mmHg (38-52); VENOUS PH 7.407 (7.310-7.410)
[2023-10-20] MEDS: ACETAMINOPHEN 1000 MG/100 ML BAG IVPB ONE (10:46)
[2023-10-20 10:50] LABS: HEMATOCRIT 19.2 % (32.4-45.2); MCH 31.7 pg (25.7-33.7); MCHC 32.5 g/dl (32.0-36.0); MEAN CELL VOLUME 97.5 fl (80-96); MEAN PLT VOLUME 9.8 fl (7.5-11.1); PLATELET COUNT 633 10^3/uL (134-434); RBC 1.97 M/mm3 (3.60-5.2); WHITE BLOOD COUNT 12.8 K/mm3 (4.0-10.0)
[2023-10-20 10:54] LABS: HEMOGLOBIN 6.2 GM/dL (10.7-15.3)
[2023-10-20 11:03] LABS: ACTIVATED PTT 25.3 SECONDS (25.2-36.5); INR 1.32 (0.83-1.09); PROTHROMBIN TIME (PATIENT) 14.8 SEC (9.7-13.0)
[2023-10-20 11:15] LABS: POTASSIUM 5.2 mmol/L (3.5-5.1)
[2023-10-20 11:18] LABS: ALBUMIN 2.2 g/dl (3.4-5.0); CALCIUM 8.4 mg/dL (8.5-10.1)
[2023-10-20 11:20] LABS: CREATININE 0.8 mg/dL (0.55-1.3)
[2023-10-20 11:23] LABS: BILIRUBIN,TOTAL 0.7 mg/dL (0.2-1); TOT PROT 7.1 g/dl (6.4-8.2)
[2023-10-20 11:38] LABS: ANISOCYTOSIS 0; MACROCYTOSIS 0
[2023-10-20] MEDS: traMADol HCL 50 MG TABLET PO ONE ×2 (14:12→15:29)
[2023-10-20] MEDS ORDERED: traMADol HCL 50 MG TABLET ONE (15:18)
[2023-10-20] MEDS ORDERED: DEXTROSE 50%-WATER - 25 GM/50 ML VIAL IVPUSH ONE (21:12)
[2023-10-20] MEDS ORDERED: DEXTROSE 50%-WATER 25 GM/50 ML DISP.SYRIN ONE (21:27)
[2023-10-20] MEDS: DONEPEZIL HCL 5 MG TABLET (FP) PO SCH (21:32)
[2023-10-20] MEDS: QUEtiapine FUMARATE 25 MG TABLET PO SCH (21:32)
[2023-10-20] MEDS: DEXTROSE 50%-WATER 25 GM/50 ML DISP.SYRIN IVPUSH ONE (21:32)
[2023-10-20] MEDS: LORazepam 1 MG TABLET PO SCH (21:32)
[2023-10-20] MEDS: INSULIN ASPART SLIDING SCALE (NOVOLOG) 1 VIAL SQ SCH (21:32)
[2023-10-21] MEDS: LEVOTHYROXINE 100 MCG, LEVOTHYROXINE 75 MCG PO SCH (06:12)
[2023-10-21] MEDS: ACETAMINOPHEN 325 MG TABLET (FP) PO PRN (06:57)
[2023-10-21 07:48] LABS: BASO % 1.8 % (0-2.0); HEMATOCRIT 23.4 % (32.4-45.2); HEMOGLOBIN 7.8 GM/dL (10.7-15.3); LYMPH % 11.7 % (8-40); MCH 32.4 pg (25.7-33.7); MCHC 33.3 g/dl (32.0-36.0); MEAN CELL VOLUME 97.5 fl (80-96); MEAN PLT VOLUME 9.5 fl (7.5-11.1); MONO % 3.7 % (3.8-10.2); NEUT % 80.8 % (42.8-82.8); PLATELET COUNT 606 10^3/uL (134-434); RBC 2.41 M/mm3 (3.60-5.2); RDW 16.8 % (11.6-15.6); WHITE BLOOD COUNT 10.8 K/mm3 (4.0-10.0)
[2023-10-21 08:05] LABS: POTASSIUM 4.6 mmol/L (3.5-5.1)
[2023-10-21 08:07] LABS: BLOOD UREA NITROGEN 16.4 mg/dL (7-18); CALCIUM 8.7 mg/dL (8.5-10.1); MAGNESIUM 2.4 mg/dL (1.8-2.4)
[2023-10-21 08:11] LABS: CREATININE 0.6 mg/dL (0.55-1.3); PHOSPHOROUS 2.7 mg/dL (2.5-4.9)
[2023-10-21] MEDS: ENOXAPARIN NA (PORCINE) 40 MG/0.4 ML DISP.SYRIN SQ SCH (09:24)
[2023-10-21] MEDS: EZETIMIBE 10 MG TABLET (FP) PO SCH (09:24)
[2023-10-21] MEDS ORDERED: PATIENT'S OWN MEDICATION (NON-FORMULARY) (Levothyroxine Sodium [Levothyroxine Sodium] 175 PO SCH (10:00)
[2023-10-21] MEDS: HYDROmorphone HCl 2 MG/ML VIAL IVPUSH PRN ×2 (12:21→15:50)
[2023-10-21] MEDS: ACETAMINOPHEN 1000 MG/100 ML BAG IVPB PRN ×2 (14:54→22:34)
[2023-10-21] MEDS ORDERED: HYDROmorphone HCl 2 MG/ML VIAL IVPUSH PRN (16:49)
[2023-10-21] MEDS: CLOPIDOGREL BISULFATE 75 MG TABLET (FP) PO SCH (18:02)
[2023-10-21 19:03] LABS: EPI CELLS 27 /uL (0-25.1); HYALINE CASTS 1 /uL (0-3.1); PH,URINE 5.5 (5.0-8.0); URINE APPEARANCE CLOUDY; URINE BACTERIA 384 /uL (0-1359); URINE BILIRUBIN NEGATIVE (NEGATIVE); URINE COLOR YELLOW; URINE GLUCOSE (UA) 3+ (NEGATIVE); URINE KETONE TRACE (NEGATIVE); URINE LEUK ESTERASE NEGATIVE (NEGATIVE); URINE NITRITE NEGATIVE (NEGATIVE); URINE PROTEIN 2+ (NEGATIVE)
[2023-10-21 19:52] LABS: URINE RBC 87.6 /uL (0-23.9); URINE WBC 225.6 /uL (0-25.8); YEAST PRESENT (NEGATIVE)
[2023-10-21] MEDS: LORazepam 1 MG TABLET PO SCH (21:05)
[2023-10-21] MEDS: QUEtiapine FUMARATE 25 MG TABLET PO SCH (21:05)
[2023-10-22] MEDS: INSULIN ASPART SLIDING SCALE (NOVOLOG) 1 VIAL SQ SCH (00:24)
[2023-10-22] MEDS: HYDROmorphone HCl 2 MG/ML VIAL IVPB PRN (04:37)
[2023-10-22] MEDS: LEVOTHYROXINE 100 MCG, LEVOTHYROXINE 75 MCG PO SCH (07:01)
[2023-10-22 08:04] LABS: HEMATOCRIT 24.2 % (32.4-45.2); HEMOGLOBIN 8.1 GM/dL (10.7-15.3); MCH 32.9 pg (25.7-33.7); MCHC 33.6 g/dl (32.0-36.0); MEAN CELL VOLUME 98.1 fl (80-96); MEAN PLT VOLUME 9.3 fl (7.5-11.1); PLATELET COUNT 546 10^3/uL (134-434); RBC 2.47 M/mm3 (3.60-5.2)
[2023-10-22 08:25] LABS: POTASSIUM 4.3 mmol/L (3.5-5.1)
[2023-10-22 08:27] LABS: CALCIUM 8.7 mg/dL (8.5-10.1)
[2023-10-22 08:28] LABS: BLOOD UREA NITROGEN 14.5 mg/dL (7-18); MAGNESIUM 2.3 mg/dL (1.8-2.4)
[2023-10-22 08:32] LABS: BILIRUBIN,TOTAL 0.9 mg/dL (0.2-1); CREATININE 0.6 mg/dL (0.55-1.3); TOT PROT 6.1 g/dl (6.4-8.2)
[2023-10-22] MEDS: EZETIMIBE 10 MG TABLET (FP) PO SCH (09:40)
[2023-10-22] MEDS: ENOXAPARIN NA (PORCINE) 40 MG/0.4 ML DISP.SYRIN SQ SCH (09:41)
[2023-10-22] MEDS: ANASTROZOLE 1 MG TABLET PO SCH (09:43)
[2023-10-22] MEDS ORDERED: ANASTROZOLE 1 MG TABLET PO SCH (10:00)
[2023-10-22 10:10] LABS: ANISOCYTOSIS 0; HELMET CELLS 0; HOWELL-JOLLY BODIES 0; MACROCYTOSIS 0; OVALOCYTE 0; ROULEAU 0; SICKELED CELLS 0; TARGET CELLS 0; TEAR DROP CELLS 0; TOXIC GRANULATION 0
[2023-10-22 15:26] VITALS: BMI 24.6
[2023-10-22] MEDS: AMINO ACIDS/PROTEIN HYDROLYS 30 ML LIQUID.PKT PO SCH (16:52)
[2023-10-23 07:42] VITALS: RESP 18
[2023-10-23 07:55] LABS: HEMATOCRIT 21.3 % (32.4-45.2); HEMOGLOBIN 7.3 GM/dL (10.7-15.3); MCH 33.6 pg (25.7-33.7); MCHC 34.3 g/dl (32.0-36.0); MEAN CELL VOLUME 98.1 fl (80-96); MEAN PLT VOLUME 9.2 fl (7.5-11.1); PLATELET COUNT 578 10^3/uL (134-434); RBC 2.18 M/mm3 (3.60-5.2); RDW 17.3 % (11.6-15.6); WHITE BLOOD COUNT 6.5 K/mm3 (4.0-10.0)
[2023-10-23 08:24] LABS: POTASSIUM 4.3 mmol/L (3.5-5.1)
[2023-10-23 08:26] LABS: CALCIUM 8.7 mg/dL (8.5-10.1)
[2023-10-23 08:27] LABS: BLOOD UREA NITROGEN 16.8 mg/dL (7-18); MAGNESIUM 2.4 mg/dL (1.8-2.4)
[2023-10-23 08:30] LABS: CREATININE 0.6 mg/dL (0.55-1.3); PHOSPHOROUS 3.2 mg/dL (2.5-4.9)
[2023-10-23 08:31] LABS: BILIRUBIN,TOTAL 0.6 mg/dL (0.2-1); TOT PROT 6.2 g/dl (6.4-8.2)
[2023-10-23] MEDS: ACETAMINOPHEN 325 MG TABLET (FP) PO SCH (09:15)
[2023-10-23] MEDS: ASCORBIC ACID 500 MG TABLET (FP) PO SCH (09:17)
[2023-10-23] MEDS: diphenhydrAMINE HCL 25 MG CAPSULE (FP) PO PRN (11:43)
[2023-10-23] MEDS ORDERED: INSULIN ASPART SLIDING SCALE (NOVOLOG) 1 VIAL SQ ONE (16:32)
[2023-10-23] MEDS: HYDROmorphone HCl 2 MG/ML VIAL IVPUSH PRN (17:58)
[2023-10-24] MEDS: HYDROmorphone HCl 2 MG/ML VIAL IVPB PRN (00:54)
[2023-10-24 08:17] LABS: HEMOGLOBIN 7.9 GM/dL (10.7-15.3); MCH 33.3 pg (25.7-33.7); MCHC 34.2 g/dl (32.0-36.0); MEAN CELL VOLUME 97.4 fl (80-96); MEAN PLT VOLUME 9.3 fl (7.5-11.1); PLATELET COUNT 600 10^3/uL (134-434); RBC 2.36 M/mm3 (3.60-5.2); RDW 17.1 % (11.6-15.6); WHITE BLOOD COUNT 7.8 K/mm3 (4.0-10.0)
[2023-10-24 08:29] LABS: POTASSIUM 4.3 mmol/L (3.5-5.1)
[2023-10-24 08:38] LABS: CALCIUM 8.8 mg/dL (8.5-10.1)
[2023-10-24 08:39] LABS: ALBUMIN 2.2 g/dl (3.4-5.0); BLOOD UREA NITROGEN 19.2 mg/dL (7-18)
[2023-10-24 08:42] LABS: CREATININE 0.5 mg/dL (0.55-1.3)
[2023-10-24 08:43] LABS: BILIRUBIN,TOTAL 0.5 mg/dL (0.2-1)
[2023-10-24 08:44] LABS: TOT PROT 6.7 g/dl (6.4-8.2)
[2023-10-24 09:40] LABS: ANISOCYTOSIS 0; MACROCYTOSIS 0; PLATELET ESTIMATE INCREASED
[2023-10-24] MEDS: POLYETHYLENE GLYCOL (HEALTHYLAX) 3350 17 GM PACKET PO ONE ×2 (22:12→22:13)
[2023-10-25] MEDS: MULTIVITAMINS (DAILY MVI) TABLET (FP) PO SCH (10:28)
[2023-10-25] MEDS: POLYETHYLENE GLYCOL (HEALTHYLAX) 3350 17 GM PACKET PO SCH (10:28)
[2023-10-25 10:54] LABS: HEMATOCRIT 24.5 % (32.4-45.2); MCH 32.1 pg (25.7-33.7); MCHC 32.7 g/dl (32.0-36.0); MEAN CELL VOLUME 98.1 fl (80-96); MEAN PLT VOLUME 9.3 fl (7.5-11.1); PLATELET COUNT 683 10^3/uL (134-434); RDW 17.2 % (11.6-15.6); WHITE BLOOD COUNT 8.4 K/mm3 (4.0-10.0)
[2023-10-25 11:21] LABS: POTASSIUM 4.5 mmol/L (3.5-5.1)
[2023-10-25 11:25] LABS: ALBUMIN 2.3 g/dl (3.4-5.0); CALCIUM 9.1 mg/dL (8.5-10.1)
[2023-10-25 11:28] LABS: CREATININE 0.6 mg/dL (0.55-1.3)
[2023-10-25 11:30] LABS: BILIRUBIN,TOTAL 0.6 mg/dL (0.2-1); TOT PROT 7.2 g/dl (6.4-8.2)
[2023-10-25 12:37] LABS: ANISOCYTOSIS 1+; MACROCYTOSIS 1+; OVALOCYTE 1+
[2023-10-25] MEDS: LORazepam 1 MG TABLET PO SCH (14:04)
[2023-10-25] MEDS: BISACODYL 10 MG SUPP.RECT PR ONE (14:25)
[2023-10-25 14:56] VITALS: BP 160/59; PULSE 77; TEMP 98.8
[2023-10-25] MEDS ORDERED: SENNOSIDES 8.6MG TABLET (FP) PO SCH (22:00)
== END 2023-10-26 01:29 | DRG 534 ==
LOC: JER 08:53 → JERBED 12:54 → J4W 17:56 → J8W 10-21 16:33
PROVIDERS: ADMIT Internal Medicine; ATTEND Nurse Practitioner Family
PROC: 30233N1 Transfusion of Nonautologous Red Blood Cells into Peripheral Vein, Percutaneous Approach (ICD-10-PCS; principal; 2023-10-20)
DX: S72.91XA Unspecified fracture of right femur, initial encounter for closed fracture (principal); S12.9XXA Fracture of neck, unspecified, initial encounter; S42.293A Other displaced fracture of upper end of unspecified humerus, initial encounter for closed fracture; L97.919 Non-pressure chronic ulcer of unspecified part of right lower leg with unspecified severity; F03.90 Unspecified dementia, unspecified severity, without behavioral disturbance, psychotic disturbance, mood disturbance, and anxiety; I10 Essential (primary) hypertension; E11.51 Type 2 diabetes mellitus with diabetic peripheral angiopathy without gangrene; D46.9 Myelodysplastic syndrome, unspecified; E03.9 Hypothyroidism, unspecified; D64.9 Anemia, unspecified; E78.5 Hyperlipidemia, unspecified; W19.XXXA Unspecified fall, initial encounter; Y93.9 Activity, unspecified; Y92.89 Other specified places as the place of occurrence of the external cause; Y99.9 Unspecified external cause status
CPT/HCPCS: 0241U-QW; 36415; 36430; 70450-TC; 71045-TC-FY; 72125-TC; 72170-TC-FY; 72192-TC; 73030-TC-RT-FY; 73060-TC-RT-FY; 73070-TC-RT-FY; 73090-TC-RT-FY; 73110-TC-RT-FY; 73130-TC-RT-FY; 73200-TC-RT; 80048; 80053; 81003; 82550; 82803; 82962; 83036; 83605; 83735; 84100; 84439; 84443; 84479; 84484; 85025; 85027; 85610; 85730; 86850; 86900; 86901; 86922; 87040; 87086; 87635; 88300-TC; 93005; 93010; 97116-GP; 99291; J0131; P9058